=== PATIENT | female | born 1960 | race Caucasian/White ===

== ENCOUNTER → 2018-09-27 | Outpatient (CLI) | payer OTHER ==
--- NOTE | 2018-09-28 15:36 | MR ---
EXAMINATION TYPE: MR brain wo/w con DATE OF EXAM: 09/27/2018 COMPARISON: None HISTORY: Lt sided tremor/weakness TECHNIQUE: Multiplanar, multisequence images of the brain and brainstem is performed without and with IV contras t, utilizing 9 mL intravenous Gadavist . FINDINGS: Diffusion weighted images demonstrate no evidence of a recent infarct or other diffusion ab normality. There is no extra-axial fluid collection or significant white matter signal abnormality, small focus in the left frontal lobe measures only 2 mm on axial image 17 of increased signal on inve rsion recovery T2-weighted sequences of questionable clinical significance. The ventricular system a nd cisternal spaces are normal in size and appearance. The brain volume is age appropriate. Midline structures demonstrate normal morphology. The craniocervical junction appears within normal limits. Post contrast images demonstrate no abnormal enhancement. The dural venous sinuses appear pa tent. The visualized sinuses are remarkable for inflammatory change in the right maxillary sinus, eth moid air cells and the globes are intact. IMPRESSION: No significant abnormality is evident. Nonspecific focus of white matter demyelination of questionable clinical ileus. Mild sinus disease.
== END | disposition home or self-care (01) ==
LOC: RADMRIMAIN 21:40
PROVIDERS: ATTEND Physician Assistant Medical
DX: R53.1 Weakness (principal)
CPT/HCPCS: 70553; A9585

== ENCOUNTER → 2018-10-26 | Outpatient (CLI) | payer OTHER ==
--- NOTE | 2018-10-27 09:15 | MM ---
Reason for exam: screening (asymptomatic). Last mammogram was performed 4 years ago. History: Patient is postmenopausal and has history of endometrial cancer at age 39. Physical Findings: A clinical breast exam by your physician is recommended on an annual basis and results should be correlated with mammographic findings. MG Screening Mammo w CAD Bilateral CC and MLO view(s) were taken. Prior study comparison: November 05, 2014, bilateral MG screening mammo w CAD. August 28, 2010, bilateral digital screening mammo w/CAD. There are scattered fibroglandular densities. Stable benign calcifications.There is no discrete abnormality. No significant changes when compared with prior studies. ASSESSMENT: Benign, BI-RAD 2 RECOMMENDATION: Routine screening mammogram of both breasts in 1 year.
== END | disposition home or self-care (01) ==
LOC: RADMAMWWP 16:05
PROVIDERS: ATTEND Family Medicine
DX: Z12.31 Encounter for screening mammogram for malignant neoplasm of breast (principal)
CPT/HCPCS: 77067

== ENCOUNTER 2018-11-28 08:52 | Day surgery (SDC) | payer OTHER ==
[2018-11-22 13:19] VITALS: BMI 31.3
[~2018-11-28 08:52] MED LIST: LACTATED RINGERS 1,000 ML IV SCH
[2018-11-28 09:17] VITALS: RESP 16; TEMP 98.1
[2018-11-28] MEDS ORDERED: IV FLUID CONTINUATION 1,000 ML IV ONE (10:12)
--- NOTE | 2018-11-28 10:14 | P.PCN ---
Date of Procedure: 11/28/18 Procedure(s) Performed: Procedure: lumbar puncture with opening pressure Preoperative diagnoses: tremors Postoperative diagnosis: tremors Anesthesia: moderate sedation with 50 mcg fentanyl and local lidocaine infiltration 1% 2 mL for skin and subq infiltration. Condition: stable. Complications: none. Indication for the procedure= patient with a history of symptoms of tremors and potential Parkinson's disease she was referred to have a lumbar puncture for diagnostic study procedure risk and benefits and alternatives discussed with the patient and she agreed with the preceding, Description of the procedure= patient in the procedure room in the lateral position and monitors applied, the back prepped with chlorhexidine , sterile technique, local infiltration of the skin and subcu interstitial with lidocaine 1% 2 mL, then 20-gauge quickie Needle advanced slowly at L4 5 interlaminar spac e, the cerebrospinal fluid was clear, and no heme no paresthesia, Open pressure was 19. A total of 8 mL of clear cerebrospinal fluid collected in 4 different tubes, the needle removed, Band-Aid applied , patient tolerated the procedure well without any complications, and further management as per primary care doctor. She is planning on seeing a neurologist in the future Opening pressure was 19
[2018-11-28 10:27] VITALS: BP 131/92; PULSE 68
[2018-11-30 11:50] LABS: IgG - CSF 2.3 mg/dL (0.0 - 3.4); Immunoglobulin G 666 mg/dL (700 - 1600)
[2018-11-30 15:25] LABS: Lyme IgG/IgM 0.03 Index
== END 2018-11-28 10:55 | disposition home or self-care (01) ==
LOC: ORPAIN 08:52
PROVIDERS: ATTEND Student in an Organized Health Care Education/Training Program
DX: R25.1 Tremor, unspecified (principal); Z88.5 Allergy status to narcotic agent
CPT/HCPCS: 82040; 82042; 82784; 83916; 86618; 87801; 62270; J3010; 99152

== ENCOUNTER → 2020-06-13 | Outpatient (CLI) | payer OTHER ==
--- NOTE | 2020-06-17 08:31 | MM ---
Reason for exam: screening (asymptomatic). Last mammogram was performed 1 year and 8 months ago. History: Patient is postmenopausal and has history of endometrial cancer at age 39. Physical Findings: A clinical breast exam by your physician is recommended on an annual basis and results should be correlated with mammographic findings. MG Screening Mammo w CAD Bilateral CC and MLO view(s) were taken. XCCL view(s) were taken of the right breast. Prior study comparison: November 05, 2014, bilateral MG screening mammo w CAD. There are scattered fibroglandular densities. Stable subareolar fibroglandular density on both sides. No significant changes when compared with prior studies. ASSESSMENT: Negative, BI-RAD 1 RECOMMENDATION: Routine screening mammogram of both breasts in 1 year.
== END | disposition home or self-care (01) ==
LOC: RADMAMWWP 15:47
PROVIDERS: ATTEND Family Medicine
DX: Z12.31 Encounter for screening mammogram for malignant neoplasm of breast (principal)
CPT/HCPCS: 77067

== ENCOUNTER 2020-10-02 08:38 | Day surgery (SDC) | payer OTHER ==
[2020-09-29 14:23] VITALS: BMI 32.3
[~2020-10-02 08:38] MED LIST changes: +LIDOCAINE 1% (10MG/ML) FOR IV START INTRADERMA PRN
[2020-10-02 08:54] VITALS: RESP 16; TEMP 97
[2020-10-02] MEDS ORDERED: PROPOFOL 10 MG/ML 20 ML VIAL IV ONE (09:38)
[2020-10-02 10:21] VITALS: BP 118/83; PULSE 76
--- NOTE | 2020-10-02 10:32 | P.GSHP ---
History of Present Illness H&P Date: 10/02/20 CHIEF COMPLAINT: Colon screen HISTORY OF PRESENT ILLNESS: The patient is a 61-year-old female who presents for colon screen. Lower endoscopy was offered for further evaluation and management. PAST MEDICAL HISTORY: Please see list. PAST SURGICAL HISTORY: Please see list. MEDICATIONS: Please see list. ALLERGIES: Please see list. SOCIAL HISTORY: No illicit drug use FAMILY HISTORY: No reports of Crohn disease or ulcerative colitis. REVIEW OF ORGAN SYSTEMS: CONSTITUTIONAL: No reports of fevers or chills. PHYSICAL EXAM: VITAL SIGNS: Stable GENERAL: Well-developed pleasant in no acute distress. HEENT: No scleral icterus. Extraocular movements grossly intact. Moist buccal mucosa. NECK: Supple without lymphadenopathy. CHEST: Unlabored respirations. Equal bilateral excursions. CARDIOVASCULAR: Regular rate and rhythm. Distal 2+ pulses. ABDOMEN: Soft, nontender, nondistended. MUSCULOSKELETAL: No clubbing, cyanosis, or edema. ASSESSMENT: 1. Colon screen. PLAN: 1. Recommend proceeding with a lower endoscopy Past Medical History Past Medical History: Cancer, Eye Disorder, Hyperlipidemia, Hypertension, Skin Disorder Additional Past Medical History / Comment(s): HX OF CERVICAL CANCER. Glaucoma. ESSENTIAL TREMORS, LEFT SIDED. History of Any Multi-Drug Resistant Organisms: None Reported Past Surgical History: Adenoidectomy, Tonsillectomy Additional Past Surgical History / Comment(s): CERVICAL CONIZATION, TUBES REMOVED DUE TO TUBAL . Past Anesthesia/Blood Transfusion Reactions: Unable to Obtain, Motion Sickness Additional Past Anesthesia/Blood Transfusion Reaction / Comment(s): PATIENT ADOPTED. Smoking Status: Former smoker - Past Family History Father Family Medical History: Unable to Obtain Additional Family Medical History / Comment(s): PT ADOPTED Mother Family Medical History: Unable to Obtain Additional Family Medical History / Comment(s): PT ADOPTED. Medications and Allergies Home Medications Medication Instructions Recorded Confirmed Type Methylphenidate HCl [Ritalin] 20 mg PO BID 07/23/14 10/02/20 History Atorvastatin [Lipitor] 20 mg PO QAM 11/22/18 10/02/20 History Lisinopril-Hctz 10-12.5 mg 1 tab PO QAM 11/22/18 09/29/20 History [Zestoretic 10-12.5] Covid-19 Vacc, Mrna(Pfizer)/Pf 2 dose IM DIRECTED 09/22/20 09/29/20 History [Pfizer Covid-19 Vaccine (Eua)] Latanoprost/Pf [Latanoprost 0.005% 1 drop BOTH EYES HS 09/22/20 10/02/20 History Eye Drop] Propranolol [Inderal] 5 mg PO BID 09/22/20 10/02/20 History Venlafaxine HCl [Effexor] 75 mg PO QAM 09/22/20 09/29/20 History Allergies Allergy/AdvReac Type Severity Reaction Status Date / Time codeine Allergy Unknown Itching/maryanne Verified 10/02/20 08:50 h Surgical - Exam Vital Signs Temp Pulse Resp BP Pulse Ox 97.0 F L 91 16 123/81 98 10/02/20 08:53 10/02/20 08:53 10/02/20 08:53 10/02/20 08:53 10/02/20 08:53
--- NOTE | 2020-10-02 10:36 | P.PCN ---
Date of Procedure: 10/02/20 Description of Procedure: PREOPERATIVE DIAGNOSIS: Positive abnormal cologuard test Sigmoid diverticulosis POSTOPERATIVE DIAGNOSIS: Sigmoid colon adenoma Sigmoid diverticulosis OPERATION: Colonoscopy to the ileocecal valve and appendiceal orifice, cecum Colonoscopy with hot snare polypectomy SURGEON: Stephani Long MD. ANESTHESIA: MAC. INDICATIONS: The patient is an 60-year-old female who presents with abnormal stool test. Benefits and risks were described and informed consent was obtained. DESCRIPTION OF PROCEDURE: The patient had undergone Sutab prep. The patient had been brought into the operating room and laid in the left lateral decubitus position. After adequate intravenous sedation, the rectum was examined with 2% lidocaine jelly. External hemorrhoids were encountered. The rectal tone was within normal limits. No lesions were palpated in the rectal vault. An Olympus colonoscope was advanced until the cecum, ileocecal valve and appendiceal orifice were clearly viewed. The prep was good. Sigmoid diverticulosis was encountered. Colonic polyps were found and removed. No evidence of focal colitis was found. Retroflexion of the scope demonstrated grade 2 internal hemorrhoids without active bleeding or inflammation. The colon was desufflated. The patient had tolerated the procedure well. Withdrawal time was over 6 minutes. FINDINGS: Aronchick preparation quality scale 2 (1-5) Internal hemorrhoids, grade 2 External hemorrhoids, grade 1. No arteriovenous malformations. Sigmoid diverticulosis Removal of 2 polyps: - Snare polypectomy 20 cm from the anal verge, 8 mm tubulovillous adenoma polyp. No focal colitis. RECOMMENDATIONS: Repeat colonoscopy 3 years, 2023 for high risk polyps Plan - Discharge Summary Discharge Rx Participant: No New Discharge Prescriptions: Continue Methylphenidate HCl [Ritalin] 20 mg PO BID Lisinopril-Hctz 10-12.5 mg [Zestoretic 10-12.5] 1 tab PO QAM Atorvastatin [Lipitor] 20 mg PO QAM Propranolol [Inderal] 5 mg PO BID Venlafaxine HCl [Effexor] 75 mg PO QAM Covid-19 Vacc, Mrna(Pfizer)/Pf [Pfizer Covid-19 Vaccine (Eua)] 2 dose IM DIRECTED Latanoprost/Pf [Latanoprost 0.005% Eye Drop] 1 drop BOTH EYES HS Discharge Medication List Methylphenidate HCl [Ritalin] 20 mg PO BID 07/23/14 [History] Atorvastatin [Lipitor] 20 mg PO QAM 11/22/18 [History] Lisinopril-Hctz 10-12.5 mg [Zestoretic 10-12.5] 1 tab PO QAM 11/22/18 [History] Covid-19 Vacc, Mrna(Pfizer)/Pf [Pfizer Covid-19 Vaccine (Eua)] 2 dose IM DIRECTED 09/22/20 [History] Latanoprost/Pf [Latanoprost 0.005% Eye Drop] 1 drop BOTH EYES HS 09/22/20 [History] Propranolol [Inderal] 5 mg PO BID 09/22/20 [History] Venlafaxine HCl [Effexor] 75 mg PO QAM 09/22/20 [History] Follow up Appointment(s)/Referral(s): Stephani Long MD [STAFF PHYSICIAN] - 10/21/20 Patient Instructions/Handouts: *Surgery [facility] - (Anesthesia) Endoscopy Discharge Instructions, Diverticulosis (DC), Colorectal Polyps (DC), Diverticulosis Diet (GEN) Activity/Diet/Wound Care/Special Instructions: Repeat colonoscopy 3 years, 2023 Discharge Disposition: HOME SELF-CARE
== END 2020-10-02 11:34 | disposition home or self-care (01) ==
LOC: ORWHC2ENDO 08:38
PROVIDERS: ATTEND Surgery Plastic and Reconstructive Surgery
DX: Z12.11 Encounter for screening for malignant neoplasm of colon (principal); D12.8 Benign neoplasm of rectum; K57.30 Diverticulosis of large intestine without perforation or abscess without bleeding; K64.0 First degree hemorrhoids; K64.1 Second degree hemorrhoids; E78.5 Hyperlipidemia, unspecified; I10 Essential (primary) hypertension; Z85.828 Personal history of other malignant neoplasm of skin; Z85.41 Personal history of malignant neoplasm of cervix uteri; H40.9 Unspecified glaucoma; G25.0 Essential tremor; Z90.89 Acquired absence of other organs; Z98.890 Other specified postprocedural states; Z87.891 Personal history of nicotine dependence; Z79.899 Other long term (current) drug therapy; Z88.5 Allergy status to narcotic agent
CPT/HCPCS: 88305; 45385; J2704

== ENCOUNTER → 2021-08-14 | Outpatient (CLI) | payer OTHER ==
--- NOTE | 2021-08-18 13:57 | MM ---
Reason for Exam: Screening (asymptomatic). Last mammogram was performed 1 year(s) and 2 month(s) ago. Patient History: Menarche at age 8. First Full-Term at age 25. Postmenopausal. Endometrial cancer, age 39. Film Views: Bilateral CC views were taken. Bilateral MLO views were taken. Prior Study Comparison: 10/26/2018 Bilateral Screening Mammogram, [facility]. 06/13/2020 Bilateral Screening Mammogram, [facility]. Tissue Density: There are scattered fibroglandular densities. Findings: Analyzed By CAD. There are benign appearing regional round calcifications in the anterior position bilaterally. No discrete abnormality. Overall Assessment: Benign, BI-RAD 2 Management: Screening Mammogram of both breasts in 1 year.
== END | disposition home or self-care (01) ==
LOC: RADMAMWWP 14:49
PROVIDERS: ATTEND Family Medicine
DX: Z12.31 Encounter for screening mammogram for malignant neoplasm of breast (principal); Z78.0 Asymptomatic menopausal state
CPT/HCPCS: 77067

== ENCOUNTER 2021-10-14 07:05 | Day surgery (SDC) | payer OTHER ==
[~2021-10-14 07:05] MED LIST changes: -LIDOCAINE 1% (10MG/ML) FOR IV START INTRADERMA PRN; +MOXIFLOXACIN HCL 0.5% DROPS 3 ML BTL OP PRN; +TETRACAINE 0.5% OPHTH (PF) DROPS 4 ML BTL OP PRN; +TIMOLOL 0.5% OPHTH DROPS 5 ML BTL OP PRN
[2021-10-14 07:57] VITALS: TEMP 97
[2021-10-14] MEDS: CYCLOPENTOLATE 1% OPHTH SOLN 2 ML BTL OP PRN ×3 (07:59→08:11)
[2021-10-14] MEDS: PHENYLEPHRINE 2.5% OPHTH DRP 2ML OP PRN ×3 (08:02→08:14)
[2021-10-14] MEDS ORDERED: LIDOCAINE 1% (10MG/ML) FOR IV START INTRADERMA ONE (08:14)
[2021-10-14] MEDS ORDERED: fentaNYL (PF) 50 MCG/ML 2 ML AMP ONE (09:04)
[2021-10-14] MEDS ORDERED: MIDAZOLAM 2 MG/2 ML VIAL ONE (09:04)
[2021-10-14] MEDS ORDERED: LIDOCAINE 1% (PF) 10MG/ML VIAL MISCELLANE ONE (09:28)
[2021-10-14] MEDS ORDERED: TRYPAN BLUE 0.06% SYRINGE 0.5 ML SYRINGE MISCELLANE ONE (09:28)
[2021-10-14] MEDS ORDERED: DUOVISC KIT (GREEN BOX) INTRAOCULA ONE (09:28)
[2021-10-14] MEDS ORDERED: BALANCED SALT IRRIG SOLN COMB2 15 ML IRRIG.SOLN INTRAOCULA ONE (09:28)
[2021-10-14] MEDS ORDERED: EPINEPHrine (PF) 0.3 ML in BALANCED SALT IRRIG SOLN COMB2 500 ML IRRIGATION ONE (09:29)
--- NOTE | 2021-10-14 09:45 | P.OP ---
Date of Procedure: 10/14/21 Preoperative Diagnosis: NS & CS reg astigmatism & POAG/ang closure Postoperative Diagnosis: same Procedure(s) Performed: PIOL & goniotomy, OD Implants: [id number] 20.00x 1.25 Anesthesia: MAC Surgeon: Rubens Kirkpatrick Pathology: none sent Condition: stable Disposition: no change Indications for Procedure: blurry vision and glaucoma control problems Operative Findings: no complications
[2021-10-14 10:16] VITALS: BP 142/93; PULSE 81; RESP 17
--- NOTE | 2021-10-14 21:51 | OP ---
OPERATIVE REPORT DATE OF SURGERY: / PROCEDURE: Phacoemulsification of cataract and intraocular lens implantation of the right eye with goniotomy. PREOPERATIVE DIAGNOSES: 1. Nuclear sclerosis. 2. Cortical sclerosis. 3. Intermittent angle closure glaucoma, both eyes. 4. Regular astigmatism. SURGEON: Dr. Rubens Kirkpatrick ANESTHESIA: Topical. ESTIMATED BLOOD LOSS: Less than 5 mL. SPECIMEN TAKEN: None. NARRATIVE: After obtaining the appropriate consent, the patient was brought to the operating room. There she was asked to sit upright, and the axis of 0 and 180 degrees was identified and marked with a gentian mohan marker. She was then placed in the proper supine position under cardiac monitoring, then prepped and draped in the usual sterile manner. She was approached from her right temporal side, and using a Dabble DBonnVacation View axis marker the axis of degrees was identified and marked with gentian mohan. At the 11 o'clock position an MVR blade was used to create a paracentesis port. Through this opening, 1% Xylocaine MPF 50:50 mix with balanced salt solution was injected into the anterior chamber. This was followed by staining the anterior chamber with Trypan blue, which was left in the eye for one minute. This was irrigated away and Viscoat was used to stabilize the anterior chamber. At the 9 o'clock position, a 2.5 mm keratome was used to create a self-sealing corneal flap incision. At this time the patient was asked to rotate her head to her left approximately 45 degrees and maintain a gaze in that general direction. Using a [place] dual blade goniotomy knife, using an inside-out method of removing the nasal trabecular meshwork was accomplished without difficulty. She was then placed in the normal supine position and a cystotome was introduced to begin a continuous tear capsulorrhexis which was then completed using the Utrata forceps. Hydrodissection and hydrodelineation of the lens were accomplished with balanced salt solution. Phacoemulsification of the lens utilizing phaco chop was accomplished in 9.61 seconds at 18% power. This was followed by additional Xylocaine MPF and removal of the remaining cortex with irrigation and aspiration as well as careful polishing of the posterior capsule in the capsule vacuum mode. Provisc was then used to stabilize the capsular bag, and a Bausch and Lomb MX 60ET 20 diopter by 1.25 cylindrical correction intraocular lens was then placed into the capsular bag without difficulty. The remaining viscoelastic was removed from in and around the intraocular lens and the axis was then finally aligned with the 160- degree axis and the lens was tamponaded against the posterior capsule for a few moments. Balanced salt solution was then used to bring the eye to slightly above normal intraocular pressure while confirming that all incisions were watertight. She then received two drops of 0.5% timolol followed by two drops of 0.5% moxifloxacin, was then lightly patched and shielded in the usual manner. There were no complications from the procedure. She tolerated the procedure well and was returned to Outpatient Recovery in good condition. MMODL / IJN: [id number] /
== END 2021-10-14 10:37 | disposition home or self-care (01) ==
LOC: OR 07:05
PROVIDERS: ATTEND Ophthalmology
DX: H25.13 Age-related nuclear cataract, bilateral (principal); H25.011 Cortical age-related cataract, right eye; H40.233 Intermittent angle-closure glaucoma, bilateral; H52.221 Regular astigmatism, right eye; H52.4 Presbyopia; E78.5 Hyperlipidemia, unspecified; G20 Parkinson's disease; Z85.41 Personal history of malignant neoplasm of cervix uteri; Z88.5 Allergy status to narcotic agent; Z79.899 Other long term (current) drug therapy; Z87.891 Personal history of nicotine dependence; F32.A Depression, unspecified; I10 Essential (primary) hypertension; E78.00 Pure hypercholesterolemia, unspecified
CPT/HCPCS: 65820; 66982; V2632; J2250; J0171; J3010; J2001

== ENCOUNTER 2021-10-28 08:03 | Day surgery (SDC) | payer OTHER ==
[2021-10-27 11:53] VITALS: BMI 28.8
[~2021-10-28 08:03] MED LIST changes: +LIDOCAINE 1% (10MG/ML) FOR IV START INTRADERMA PRN
[2021-10-28 09:01] VITALS: TEMP 97.2
[2021-10-28] MEDS: CYCLOPENTOLATE 1% OPHTH SOLN 2 ML BTL OP PRN ×3 (09:05→09:15)
[2021-10-28] MEDS: PHENYLEPHRINE 2.5% OPHTH DRP 2ML OP PRN ×3 (09:07→09:17)
[2021-10-28] MEDS ORDERED: MIDAZOLAM 2 MG/2 ML VIAL ONE (11:07)
[2021-10-28] MEDS ORDERED: fentaNYL (PF) 50 MCG/ML 2 ML AMP ONE (11:07)
[2021-10-28] MEDS ORDERED: TIMOLOL 0.5% OPHTH DROPS 5 ML BTL LEFT EYE ONE ×2 (11:20→11:40)
[2021-10-28] MEDS ORDERED: LIDOCAINE 1% (PF) 10MG/ML VIAL MISCELLANE ONE (11:20)
[2021-10-28] MEDS ORDERED: DUOVISC KIT (GREEN BOX) INTRAOCULA ONE (11:20)
[2021-10-28] MEDS ORDERED: MOXIFLOXACIN HCL 0.5% DROPS 3 ML BTL LEFT EYE ONE ×2 (11:20→11:40)
[2021-10-28] MEDS ORDERED: BALANCED SALT IRRIG SOLN COMB2 15 ML IRRIG.SOLN INTRAOCULA ONE (11:20)
[2021-10-28] MEDS ORDERED: EPINEPHrine (PF) 0.3 ML in BALANCED SALT IRRIG SOLN COMB2 500 ML IRRIGATION ONE (11:22)
--- NOTE | 2021-10-28 11:46 | P.OP ---
Date of Procedure: 10/28/21 Preoperative Diagnosis: NS & CS & POAG mild Postoperative Diagnosis: same Procedure(s) Performed: PIOL, OS & goniotomy Implants: [id number] 21.00 Anesthesia: MAC Surgeon: Rubens Kirkpatrick Pathology: none sent Condition: stable Disposition: same day Indications for Procedure: blurry vision Operative Findings: no complications
[2021-10-28 12:03] VITALS: BP 147/88; PULSE 79; RESP 20
--- NOTE | 2021-10-29 10:27 | OP ---
OPERATIVE REPORT DATE OF SERVICE: October 28, 2021. PROCEDURE PERFORMED: Phacoemulsification of cataract and intraocular lens implant with goniotomy of the left eye. PREOPERATIVE DIAGNOSES: Nuclear sclerosis, cortical sclerosis with primary open-angle glaucoma mild stage. POSTOPERATIVE DIAGNOSES: Nuclear sclerosis, cortical sclerosis with primary open-angle glaucoma mild stage. SURGEON: Dr. Rubens Kirkpatrick. ANESTHESIA: Topical. ESTIMATED BLOOD LOSS: Less than 5 mL. SPECIMEN TAKEN: None. NARRATIVE: After obtaining the appropriate consent, the patient was brought to the operating room. There she was placed under cardiac monitoring, prepped and draped in the usual sterile manner. She was approached from her left temporal side and at the 5 o'clock position an MVR blade was used to create a paracentesis port. Through this opening 1% Xylocaine MPF 50:50 mix with balanced salt solution was injected into the anterior chamber. This was followed by stabilization of the anterior chamber with Viscoat. At the 3 o'clock position, a 2.5 mm keratome was used to create a self-sealing corneal flap incision. A small amount of the viscoelastic was placed on the patient's cornea. The patient was then asked to rotate her head approximately 45 degrees to her right and maintain a gaze in that general direction. A gonio prism was placed on the patient's eye and KBD goniotomy knife was passed across the anterior chamber to the nasal trabecular meshwork. The trabecular meshwork was removed with the KBD knife using the meenu and meet method. A mild amount of bleeding was encountered at the removal of the trabecular meshwork as planned. The patient was then brought to normal supine position. Additional viscoelastic was instilled into the anterior chamber and a cystotome was introduced to begin a continuous tear capsulorrhexis which was then completed using the Utrata forceps. Hydrodissection and hydrodelineation of the lens was accomplished with balanced salt solution. Phacoemulsification of the lens utilizing phaco chop was accomplished in 6.58 seconds at 14% power. Additional Xylocaine MPF was instilled into the anterior chamber. This was followed by removal of the remaining cortical material under irrigation and aspiration as well as careful polishing of the posterior capsule in the capsule vacuum mode. Provisc was then used to stabilize the anterior chamber in the capsular bag. A Bausch and Lomb MX 60 E 21.0 diopter posterior chamber intraocular lens was then inserted into the capsular bag without difficulty. The remaining viscoelastic was removed from in and around the intraocular lens and a significant amount of liberated blood in the anterior chamber was also removed under the irrigation and aspiration at this stage. Both wounds were hydrated with balanced salt solution and the eye was brought to approximately 30 mmHg with balance salt solution in the anterior chamber. The wounds were confirmed watertight. At this stage, she then received 2 drops of 0.5% timolol followed by 2 drops of 0.5% moxifloxacin and was then lightly patched and shielded in the usual manner. There were no complications from the procedure. She tolerated the procedure well and was returned to outpatient recovery in good condition. MMNIKKO / IJN: [id number] /
== END 2021-10-28 12:20 | disposition home or self-care (01) ==
LOC: OR 08:03
PROVIDERS: ATTEND Ophthalmology
DX: H25.12 Age-related nuclear cataract, left eye (principal); H40.1121 Primary open-angle glaucoma, left eye, mild stage; I10 Essential (primary) hypertension; F32.A Depression, unspecified; E78.00 Pure hypercholesterolemia, unspecified; G20 Parkinson's disease; J30.2 Other seasonal allergic rhinitis; E78.5 Hyperlipidemia, unspecified; F90.9 Attention-deficit hyperactivity disorder, unspecified type; Z87.891 Personal history of nicotine dependence; Z85.41 Personal history of malignant neoplasm of cervix uteri; Z79.899 Other long term (current) drug therapy; Z88.5 Allergy status to narcotic agent; Z98.890 Other specified postprocedural states; Z98.51 Tubal ligation status
CPT/HCPCS: 66984; 65820; C1780; J2250; J0171; J3010; J2001

== ENCOUNTER → 2022-10-28 | Outpatient (CLI) | payer MEDICARE, OTHER ==
--- NOTE | 2022-10-29 19:21 | MM ---
Reason for Exam: Screening (asymptomatic). Last mammogram was performed 1 year(s) and 2 month(s) ago. Patient History: Menarche at age 8. First Full-Term at age 25. Postmenopausal. Endometrial cancer, age 39. Risk Values: Raven 5 year model risk: 1.9%. NCI Lifetime model risk: 8.1%. Prior Study Comparison: 10/26/2018 Bilateral Screening Mammogram, [facility]. 06/13/2020 Bilateral Screening Mammogram, [facility]. 08/14/2021 Bilateral MG screening mammo w CAD, [facility]. Tissue Density: There are scattered fibroglandular densities. Findings: Analyzed By CAD. There is no suspicious group of microcalcifications or new suspicious mass in either breast. Overall Assessment: Negative, BI-RAD 1 Management: Screening Mammogram of both breasts in 1 year. . Patient should continue monthly self-breast exams. A clinical breast exam by your physician is recommended on an annual basis. This exam should not preclude additional follow-up of suspicious palpable abnormalities. Note on Raven scores and lifetime risk: 1. A Raven score greater than 3% is considered moderate risk. If this is the case, consider specialist referral to assess eligibility for a risk reducing agent. 2. If overall lifetime risk for the development of breast cancer is 20% or higher, the patient may qualify for future screening with alternating mammogram and breast MRI. Electronically signed and approved by: Anselmo Davila M.D. Radiologist
--- NOTE | 2022-10-30 10:03 | NM ---
EXAMINATION TYPE: NM thyroid image only DATE OF EXAM: 10/28/2022 COMPARISON: None available CLINICAL INDICATION: Female, 62 years old with history of R22 LOCALIZED SWELLING, MASS AND LUMP,; TECHNIQUE: After the intravenous administration of 10.3 mCi Tc 99m Sodium Pertechnetate. FINDINGS: There is uptake demonstrated throughout both lobes of thyroid parenchyma. There is a focal decreased region of uptake identified within the inferior pole of the right thyroid lobe. Asymmetric increased uptake within the superior pole of the right thyroid lobe. No ectopic uptake identified. IMPRESSION: Suggested cold nodule within the inferior right thyroid lobe and hot nodule within the [place] perior right thyroid lobe. Correlation with thyroid ultrasound is recommended.
== END | disposition home or self-care (01) ==
LOC: RADNMMAIN 10:21
PROVIDERS: ATTEND Family Medicine
DX: Z12.31 Encounter for screening mammogram for malignant neoplasm of breast (principal); R22.0 Localized swelling, mass and lump, head; Z78.0 Asymptomatic menopausal state
CPT/HCPCS: 77067; 77063; 78013; A9512

== ENCOUNTER 2022-11-29 12:45 | Day surgery (SDC) | payer MEDICARE, OTHER ==
[2022-11-29] MEDS ORDERED: ALPRAZolam 0.5 MG TAB PO PRN (13:05)
[2022-11-29 13:33] VITALS: TEMP 98
[2022-11-29 14:10] VITALS: RESP 16
[2022-11-29 14:11] VITALS: BP 128/70; PULSE 87
--- NOTE | 2022-11-29 14:33 | US ---
ULTRASOUND GUIDED FNA THYROID BIOPSY: CLINICAL HISTORY: Right thyroid nodule FINDINGS: The procedure was explained to the patient. The risks, complications, benefits and alternatives were discussed and any questions were answered. Informed consent was obtained. Patient was placed supin e on the ultrasound table and prepped and draped in the usual sterile fashion. Utilizing a 25 gauge needle, five passes were made into the requested right thyroid nodule. Patient was stable throughout the procedure. Pathology is pending. All elements of maximal barrier technique were utilized. IMPRESSION: 1. Successful ultrasound guided FNA thyroid biopsy.
== END 2022-11-29 14:28 | disposition home or self-care (01) ==
LOC: RADPROMAIN 12:45
PROVIDERS: ATTEND Family Medicine
DX: E04.1 Nontoxic single thyroid nodule (principal); Z85.41 Personal history of malignant neoplasm of cervix uteri
CPT/HCPCS: 10005; 88173; 88305

== ENCOUNTER 2024-08-29 08:44 | Day surgery (SDC) | payer MEDICARE, OTHER ==
[2024-08-28 12:35] VITALS: BMI 28.6
--- NOTE | 2024-08-29 08:38 | P.GSHP ---
History of Present Illness H&P Date: 08/29/24 CHIEF COMPLAINT: Colon screen HISTORY OF PRESENT ILLNESS: The patient is a 64-year-old female who presents for colon screen. Lower endoscopy was offered for further evaluation and management. PAST MEDICAL HISTORY: Please see list. PAST SURGICAL HISTORY: Please see list. MEDICATIONS: Please see list. ALLERGIES: Please see list. SOCIAL HISTORY: No illicit drug use FAMILY HISTORY: No reports of Crohn disease or ulcerative colitis. REVIEW OF ORGAN SYSTEMS: CONSTITUTIONAL: No reports of fevers or chills. PHYSICAL EXAM: VITAL SIGNS: Stable GENERAL: Well-developed pleasant in no acute distress. HEENT: No scleral icterus. Extraocular movements grossly intact. Moist buccal mucosa. NECK: Supple without lymphadenopathy. CHEST: Unlabored respirations. Equal bilateral excursions. CARDIOVASCULAR: Regular rate and rhythm. Distal 2+ pulses. ABDOMEN: Soft, nontender, nondistended. MUSCULOSKELETAL: No clubbing, cyanosis, or edema. ASSESSMENT: 1. Colon screen. PLAN: 1. Recommend proceeding with a lower endoscopy Past Medical History Past Medical History: Cancer, Eye Disorder, Hyperlipidemia, Hypertension Additional Past Medical History / Comment(s): HX OF CERVICAL CANCER. PARKISON'S LEFT SIDED. History of Any Multi-Drug Resistant Organisms: None Reported Past Surgical History: Adenoidectomy, Tonsillectomy Additional Past Surgical History / Comment(s): CERVICAL CONIZATION, TUBES REMOVED DUE TO TUBAL , Deep Brain Stimulation to treat Parkinson's Past Anesthesia/Blood Transfusion Reactions: Unable to Obtain, Motion Sickness Additional Past Anesthesia/Blood Transfusion Reaction / Comment(s): PATIENT ADOPTED. Smoking Status: Former smoker - Past Family History Father Family Medical History: Unable to Obtain Additional Family Medical History / Comment(s): PT ADOPTED Mother Family Medical History: Unable to Obtain Additional Family Medical History / Comment(s): PT ADOPTED. Medications and Allergies Home Medications Medication Instructions Recorded Confirmed Type Atorvastatin [Lipitor] 20 mg PO HS 11/22/18 08/28/24 History Venlafaxine HCl [Effexor] 75 mg PO BID 09/22/20 08/28/24 History lamoTRIgine [LaMICtal] 100 mg PO HS 11/23/22 08/28/24 History lisinopriL [Zestril] 20 mg PO HS 11/23/22 08/28/24 History Solifenacin Succinate [Vesicare] 20 mg PO DAILY 08/28/24 08/28/24 History Allergies Allergy/AdvReac Type Severity Reaction Status Date / Time codeine Allergy Unknown Itching/maryanne Verified 08/28/24 12:26 h
[2024-08-29] MEDS: IV FLUID CONTINUATION 1,000 ML IV ONE (09:10)
[2024-08-29 09:20] VITALS: RESP 18; TEMP 97.6
[2024-08-29] MEDS: LACTATED RINGERS 1,000 ML IV SCH (09:22)
[2024-08-29] MEDS ORDERED: LIDOCAINE 1% INJ 10MG/ML (20 ML MDV) ONE (09:39)
[2024-08-29] MEDS ORDERED: fentaNYL (PF) 50 MCG/ML 50 ML VIAL ONE (09:39)
[2024-08-29] MEDS ORDERED: PROPOFOL 10 MG/ML 20 ML VIAL IV ONE (09:39)
--- NOTE | 2024-08-29 10:30 | P.PCN ---
Date of Procedure: 08/29/24 Description of Procedure: PREOPERATIVE DIAGNOSIS: History of colon polyp Colonoscopy screening. POSTOPERATIVE DIAGNOSIS: Constipation OPERATION: Colonoscopy to the cecum, ileocecal valve and appendiceal orifice. SURGEON: Stephani Long MD. ANESTHESIA: MAC. INDICATIONS: The patient is a 64-year-old female who presents for colonoscopy screening. Last colonoscopy over 5 years. Benefits and risks were described and informed consent was obtained. DESCRIPTION OF PROCEDURE: The patient had undergone Suprep. The patient had been brought into the operating room and laid in the left lateral decubitus position. After adequate intravenous sedation, the rectum was examined with 2% lidocaine jelly. No external hemorrhoids were encountered. The rectal tone was within normal limits. No lesions were palpated in the rectal vault. An Olympus colonoscope was advanced until the cecum, ileocecal valve and appendiceal orifice were clearly viewed. The prep was poor. No large scattered diverticulosis was encountered. No no large colonic polyps over 4 cm were found. No evidence of focal colitis was found. Retroflexion of the scope demonstrated grade 1 internal hemorrhoids without active bleeding or inflammation. The colon was desufflated. The patient had tolerated the procedure well. Withdrawal time was over 6 minutes. FINDINGS: Aronchick preparation quality scale 4 (1-5) Internal hemorrhoids, grade 1 No external prolapsed hemorrhoids. No arteriovenous malformations. Poor prep limiting view of less than 4 cm adenomatous polyps. No focal colitis. Highly redundant sigmoid colon RECOMMENDATIONS: Repeat colonoscopy 2 years, 2026 with extended day prep Plan - Discharge Summary Discharge Rx Participant: No New Discharge Prescriptions: Continue Atorvastatin [Lipitor] 20 mg PO HS Venlafaxine HCl [Effexor] 75 mg PO BID Solifenacin Succinate [Vesicare] 20 mg PO DAILY lisinopriL [Zestril] 20 mg PO HS lamoTRIgine [LaMICtal] 100 mg PO HS Discharge Medication List Atorvastatin [Lipitor] 20 mg PO HS 11/22/18 [History] Venlafaxine HCl [Effexor] 75 mg PO BID 09/22/20 [History] lamoTRIgine [LaMICtal] 100 mg PO HS 11/23/22 [History] lisinopriL [Zestril] 20 mg PO HS 11/23/22 [History] Solifenacin Succinate [Vesicare] 20 mg PO DAILY 08/28/24 [History] Follow up Appointment(s)/Referral(s): Stephani Long MD [STAFF PHYSICIAN] - 1 Week Patient Instructions/Handouts: *Surgery [facility] - (Anesthesia) Discharge Instructions Outpatient Surgery, Constipation (ED) Activity/Diet/Wound Care/Special Instructions: Repeat colonoscopy 2 years, 2026. Recommend extended day prep Discharge Disposition: HOME SELF-CARE
[2024-08-29 10:39] VITALS: BP 149/95; PULSE 81
== END 2024-08-29 11:42 | disposition home or self-care (01) ==
LOC: ORWHC2ENDO 08:44
PROVIDERS: ATTEND Surgery Plastic and Reconstructive Surgery
DX: Z12.11 Encounter for screening for malignant neoplasm of colon (principal); K64.0 First degree hemorrhoids; E78.5 Hyperlipidemia, unspecified; I10 Essential (primary) hypertension; G20.A1 Parkinson's disease without dyskinesia, without mention of fluctuations; Z85.41 Personal history of malignant neoplasm of cervix uteri; Z90.89 Acquired absence of other organs; Z87.891 Personal history of nicotine dependence; Z86.0100 Personal history of colon polyps, unspecified; Z88.5 Allergy status to narcotic agent; Z79.02 Long term (current) use of antithrombotics/antiplatelets; Z79.899 Other long term (current) drug therapy
CPT/HCPCS: J3010; J2003; J2704; G0105; 45378